=== PATIENT | male | born 1980 | race Caucasian/White ===

== ENCOUNTER 2016-08-08 08:08 | Emergency (ER) | payer OTHER ==
[2016-08-08] MEDS ORDERED: IBUPROFEN 800 MG TABLET PO STA (08:18)
[2016-08-08] MEDS ORDERED: IBUPROFEN 800 MG TABLET PO ONE (08:20)
== END 2016-08-08 09:40 | disposition home or self-care (01) ==
DX: S93.601A Unspecified sprain of right foot, initial encounter (principal); W21.89XA Striking against or struck by other sports equipment, initial encounter; Y93.89 Activity, other specified; F17.200 Nicotine dependence, unspecified, uncomplicated
CPT/HCPCS: 73630; 99283; A9270

== ENCOUNTER 2017-03-25 17:37 | Emergency (ER) | payer OTHER ==
[2017-03-25 17:50] VITALS: BP 150/89
--- NOTE | 2017-03-25 17:55 | ED Physician Documentation ---
PD HPI MALE - Stated complaint Stated Complaint: ABDX PX - Chief complaint Chief Complaint: General - History obtained from History obtained from: Patient - History of Present Illness Timing - onset: Yesterday Timing - duration: Days (2) Timing - details: Gradual onset, Still present Associated symptoms: Dysuria (mild), Testiclar pain. No: Hematuria (but noted blood in his semen 2 days ago. No discharge.), Scrotal swelling PD HPI MALE CONTRIB FACTORS: Sexually active (with just his .) Similar symptoms before: Has not had sx before Recently seen: Not recently seen Review of Systems Constitutional: denies: Fever, Chills GI: denies: Abdominal Pain, Nausea, Vomiting, Diarrhea : reports: Dysuria (mild today), Other (blood scant amount in semen 2 days ago.). denies: Frequency, Hematuria, Discharge Skin: denies: Rash, Lesions Musculoskeletal: denies: Neck pain, Back pain PD PAST MEDICAL HISTORY - Past Medical History Endocrine/Autoimmune: None : None - Past Surgical History Past Surgical History: Yes Ortho: Other - Present Medications Home Medications: Ambulatory Orders Medication Instructions Recorded Confirmed Naproxen [Naprosyn] 500 mg PO BID #14 tablet 03/25/17 Sulfamethox/Trimeth 800/160 1 each PO BID #14 tablet 03/25/17 [Bactrim Ds 800/160] Tramadol HCl 50 mg PO Q6H PRN #20 tablet 03/25/17 - Allergies Allergies/Adverse Reactions: Allergies Allergy/AdvReac Type Severity Reaction Status Date / Time No Known Drug Allergies Allergy Verified 08/08/16 08:14 - Social History Does the pt smoke?: Yes Smoking Status: Current every day smoker Does the pt have substance abuse?: No - Immunizations Immunizations are current?: Yes PD ED PE NORMAL - Vitals Vital signs reviewed: Yes - General General: Alert and oriented X 3, No acute distress, Well developed/nourished - Male Male : Other (there is tenderness backside of both testicles with normal feeling testicle size. There is some fullnes of right epididymis. No masses. No hernia felt. There is good cremaster reflex on right, less on left. Slight off vertical lie on left. ) - Rectal Rectal: Deferred - Back Back: No CVA TTP - Derm Derm: Normal color, Warm and dry Results - Vitals Vitals: Oxygen O2 Source Room air - Labs Labs: Microbiology 03/25/17 18:19 Urine Culture - Preliminary Urine,Clean Catch No growth Laboratory Tests 03/25/17 18:19 Urine Color YELLOW Urine Clarity CLOUDY Urine pH 7.0 Ur Specific R[place] 1.020 Urine Protein TRACE Urine Glucose (UA) NEGATIVE Urine Ketones NEGATIVE Urine Occult Blood MODERATE H Urine Nitrite NEGATIVE Urine Bilirubin NEGATIVE Urine Urobilinogen 0.2 (NORMAL) Ur Leukocyte Esterase MODERATE H Urine RBC 6-10 H Urine WBC >25 H Ur Squamous Epith Cells NONE SEEN Urine Bacteria Few Ur Microscopic Review INDICATED Urine Culture Comments INDICATED - Rads (name of study) testicle U/S Radiology: Prelim report reviewed (normal) PD MEDICAL DECISION MAKING - ED course Complexity details: considered differential (testicles are normal by U/S and he does have blood and leuks in UA, with tenderness inferior to testicles c/w epididymal. Consider prostatitis but would not give scrotal tenderness. Unlikely STD.), d/w patient Departure - Departure Disposition: 01 Home, Self Care Clinical Impression: Testicle pain, Epididymitis Condition: Stable Record reviewed to determine appropriate education?: Yes Instructions: ED Epididymitis Follow-Up: [facility] [Provider Group] Prescriptions: Naproxen [Naprosyn] 500 mg PO BID #14 tablet Sulfamethox/Trimeth 800/160 [Bactrim Ds 800/160] 1 each PO BID #14 tablet Tramadol HCl 50 mg PO Q6H PRN #20 tablet PRN Reason: Pain Comments: The ultrasound shows normal structure of the testicles and normal blood flow in both. Your urine test does show signs of leukocytes which represent infection. Therefore assume there is some infection in through the lower part of the epididymis or potentially prostate. Use some anti-inflammatories such as ibuprofen or naproxen twice daily for the next week. Also Bactrim antibiotic twice daily for the next week. Add Tylenol or tramadol as needed for worse pain. Follow-up with your primary care if not improving over the next 2-3 days. Discharge Date/Time: 03/25/17 20:34
[2017-03-25] MEDS ORDERED: IBUPROFEN 600 MG TABLET PO ONE (18:22)
[2017-03-25] MEDS ORDERED: SULFAMETH/TRIMETH DS 800/160 MG TABLET PO ONE ×2 (18:22→20:32)
[2017-03-25] MEDS: IBUPROFEN 600 MG TABLET PO STA (18:23)
[2017-03-25 18:40] LABS: BILIRUBIN,URINE NEGATIVE (NEGATIVE)
[2017-03-25 18:41] LABS: UA w/ MICROSCOPIC CHARGE YES
[2017-03-25 18:48] LABS: UR CULTURE IF IND INDICATED; WBC,URINE >25 /HPF (0-3)
--- NOTE | 2017-03-25 20:24 | Ultrasound Preliminary Report ---
Exam: US Testicle w/Doppler Limited IMPRESSION: Negative testicular ultrasound. The testes demonstrate no evidence of mass or torsion. [facility] SITE ID: [id number]
--- NOTE | 2017-03-25 20:26 | Ultrasound Report ---
EXAM: SCROTAL ULTRASOUND EXAM DATE: 03/25/2017 07:16 PM. CLINICAL HISTORY: Testicle pain and tenderness, no noted injury. COMPARISON: None. TECHNIQUE: Real-time scanning was performed with static images obtained. Both color-flow and Doppler spectral analysis were utilized. FINDINGS: Right: Testis: 4.5 x 2.4 x 2.9 cm. Normal size and echotexture. No mass, calcification, or abnormal blood fl ow. Epididymis: Normal size and echotexture. No mass or abnormal blood flow. Hydrocele: Small. Varicocele: None. Left: Testis: 4.9 x 2.2 x 2.6 cm. Normal size and echotexture. No mass, calcification, or abnormal blood fl ow. Epididymis: Normal size and echotexture. No mass or abnormal blood flow. Hydrocele: Small Varicocele: None. IMPRESSION: Negative testicular ultrasound. The testes demonstrate no evidence of mass or torsion. [facility] Referring Provider Line: [phone] SITE ID: [id number]
[2017-03-25] MEDS: SULFAMETH/TRIMETH DS 800/160 MG TABLET PO STA (20:30)
== END 2017-03-25 20:34 | disposition home or self-care (01) ==
LOC: ED 17:37
DX: N50.819 Testicular pain, unspecified (principal); N45.1 Epididymitis; F17.200 Nicotine dependence, unspecified, uncomplicated
CPT/HCPCS: 76870; 81001; 81003; 87086; 93976; 99283; 99284

== ENCOUNTER 2017-04-07 09:11 | Emergency (ER) | payer OTHER ==
[2017-04-07 09:36] LABS: BILIRUBIN,URINE NEGATIVE (NEGATIVE)
[2017-04-07 10:00] LABS: UA w/ MICROSCOPIC CHARGE YES
[2017-04-07 10:07] LABS: UR CULTURE IF IND NOT INDICATED; WBC,URINE 0-3 /HPF (0-3)
--- NOTE | 2017-04-07 11:37 | ED Physician Documentation ---
History of Present Illness - Stated complaint Stated Complaint: MED REFILL - Chief complaint Chief Complaint: General - Additonal information Additional information: hx from pt 36 male AD [place] seen about 10 days ago for lower abd pain and swollen R testicle had test sono (no mass no torsion) and UA and was dced with bactrim X 7 day better on bactrim, swelling subsided etc now that ab is done sx have returned so he would like more antibiotics Review of Systems Constitutional: denies: Fever, Chills Throat: denies: Sore throat Cardiac: denies: Chest pain / pressure Respiratory: denies: Dyspnea GI: reports: Abdominal Pain : reports: Testicular pain PD PAST MEDICAL HISTORY - Past Medical History Past Medical History: No Endocrine/Autoimmune: None : None - Past Surgical History Past Surgical History: Yes Ortho: Other - Present Medications Home Medications: Ambulatory Orders Medication Instructions Recorded Confirmed Sulfamethox/Trimeth 800/160 1 each PO BID #20 tablet 04/07/17 [Bactrim Ds 800/160] traMADol [Ultram] 50 mg PO Q6H PRN #15 tablet 04/07/17 - Allergies Allergies/Adverse Reactions: Allergies Allergy/AdvReac Type Severity Reaction Status Date / Time No Known Drug Allergies Allergy Verified 04/07/17 09:27 - Social History Does the pt smoke?: Yes Smoking Status: Current every day smoker Does the pt have substance abuse?: No - Immunizations Immunizations are current?: Yes PD ED PE NORMAL - Vitals Vital signs reviewed: Yes - Cardiac Cardiac: RRR - Respiratory Respiratory: No respiratory distress, Clear bilaterally - Abdomen Abdomen: Soft, Non tender - Male Male : Other (no dc or lesions, testes descended, large R irreg testicular swelling with mod TTP, + cremesteric, no hernia) - Derm Derm: Normal color - Neuro Neuro: Alert and oriented X 3 Results - Vitals Vitals: Vital Signs - 24 hr 04/07/17 09:22 Temperature 36.5 C Heart Rate 86 Respiratory 18 Rate Blood Pressure 124/77 O2 Saturation 100 Oxygen O2 Source Room air - Labs Labs: Laboratory Tests 04/07/17 09:29 Urine Color DARK YELLOW Urine Clarity CLEAR Urine pH 6.0 Ur Specific [place] 1.020 Urine Protein TRACE Urine Glucose (UA) NEGATIVE Urine Ketones TRACE Urine Occult Blood SMALL H Urine Nitrite NEGATIVE Urine Bilirubin NEGATIVE Urine Urobilinogen 0.2 (NORMAL) Ur Leukocyte Esterase NEGATIVE Urine RBC 0-5 Urine WBC 0-3 Ur Squamous Epith Cells NONE SEEN Urine Bacteria None Seen Urine Mucus Few Strands Ur Microscopic Review INDICATED Urine Culture Comments NOT INDICATED PD MEDICAL DECISION MAKING - ED course ED course: pt states the swelling is the same, perhaps less, than when he was seen before and had a sono neg for mass and torsion, also pain is 5-7/10 and has been present for 2 weeks so doubt torsion Departure - Departure Disposition: 01 Home, Self Care Clinical Impression: Testicle pain, Epididymitis Condition: Good Instructions: ED Epididymitis Follow-Up: [facility] [Provider Group] Prescriptions: Sulfamethox/Trimeth 800/160 [Bactrim Ds 800/160] 1 each PO BID #20 tablet traMADol [Ultram] 50 mg PO Q6H PRN #15 tablet PRN Reason: Severe Pain Comments: The previous ultrasound for the same symptoms did not show a testicular mass or any torsion. Since you got better with the antibiotic before i have prescribed them again But if the swelling persists or returns again, I really think you need to see a specialist - you can call the urology clinic number I provided or ask your PMD at [facility] for a referral through [facility] Even if you feel better you need to follow up with your PMD at [place] within a week for a recheck You should take a probiotic while on the bactrim to prevent GI upset You can take tylenol and ibuprofen for midl to moderate pain Only take the tramadol for severe pain Forms: Activity restrictions
[2017-04-07] MEDS ORDERED: SULFAMETH/TRIMETH DS 800/160 MG TABLET PO STA (11:40)
[2017-04-07] MEDS ORDERED: SULFAMETH/TRIMETH DS 800/160 MG TABLET PO ONE (11:50)
[2017-04-07 11:59] VITALS: BP 132/74
== END 2017-04-07 11:59 | disposition home or self-care (01) ==
LOC: ED 09:11
DX: N50.811 Right testicular pain (principal); N45.1 Epididymitis; F17.200 Nicotine dependence, unspecified, uncomplicated
CPT/HCPCS: 81001; 87491; 87591; 99283; A9270; 81003; 87086

== ENCOUNTER 2020-05-31 07:51 | Outpatient (CLI) | payer BC, OTHER ==
--- NOTE | 2020-05-31 16:12 | XRAY Report ---
PROCEDURE: Forearm LT INDICATIONS: LIPOMA TECHNIQUE: 2 views of the forearm were acquired. COMPARISON: None FINDINGS: Bones: No fractures or dislocations. No suspicious bony lesions. Soft tissues: No suspicious soft tissue calcifications or masses. IMPRESSION: No definitively identified soft tissue mass. If this remains of concern, focused ultrasound is recomm ended. Reviewed by: Toyin Finnegan MD on 05/31/2020 4:11 PM PST Approved by: Toyin Finnegan MD on 05/31/2020 4:11 PM PST Station ID: [id number]
== END 2020-05-31 23:59 | disposition home or self-care (01) ==
LOC: DI.N 07:51
PROVIDERS: ATTEND Orthopaedic Surgery
DX: D17.9 Benign lipomatous neoplasm, unspecified (principal)

== ENCOUNTER 2022-02-17 08:00 | Outpatient (CLI) | payer BC, OTHER ==
--- NOTE | 2022-02-17 11:50 | XRAY Report ---
PROCEDURE: Knee 3 View RT INDICATIONS: ACUTE RIGHT KNEE PAIN TECHNIQUE: 3 views of the right knee(s) were acquired. COMPARISON: None. FINDINGS: Bones: No fractures or dislocations. No suspicious bony lesions. Soft tissues: Suprapatellar joint effusion. No suspicious soft tissue calcifications. IMPRESSION: No acute osseous abnormality. Joint effusion is present. Reviewed by: Juan Busch MD on 02/17/2022 11:49 AM PDT Approved by: Juan Busch MD on 02/17/2022 11:49 AM PDT Station ID: [id number]
== END 2022-02-17 23:59 | disposition home or self-care (01) ==
LOC: DI.S 08:00
PROVIDERS: ATTEND Physician Assistant Medical
DX: M25.561 Pain in right knee (principal); M25.461 Effusion, right knee
CPT/HCPCS: 87070; 87205

== ENCOUNTER 2023-02-08 15:24 | Emergency (ER) | payer BC ==
[2023-02-08] MEDS ORDERED: lidocaine 1% 20 ML MDV SUBQ ONE (15:31)
[2023-02-08 15:34] VITALS: BP 140/90; O2SAT 98
[2023-02-08] MEDS ORDERED: TETANUS/DIPHTHERIA/PERTUSSIS 0.5 ML SYRINGE IM ONE (15:44)
--- NOTE | 2023-02-08 15:46 | ED Physician Documentation ---
PD HPI UPPER EXT INJURY - Stated complaint Stated Complaint: L HAND LAC - Chief complaint Chief Complaint: Laceration - History obtained from History obtained from: Patient - History of Present Illness Location: Left, Hand Type of injury: Laceration - Additonal information Additional information: Patient is a 42-year-old male presenting for evaluation of a laceration to his left hand that occurred just prior to arrival as he was working on a fishing tye with a pocket knife. He is unsure of his last tetanus. Bleeding is controlled with pressure. He does not take a blood thinner. Review of Systems Constitutional: denies: Fever Cardiac: denies: Chest pain / pressure Respiratory: denies: Dyspnea GI: denies: Abdominal Pain Skin: reports: Laceration (s) PD PAST MEDICAL HISTORY - Past Medical History Endocrine/Autoimmune: None : None - Past Surgical History Past Surgical History: Yes Ortho: Other - Present Medications Home Medications: Ambulatory Orders Medication Instructions Recorded Confirmed Sulfamethox/Trimeth 800/160 1 each PO BID #20 tablet 04/07/17 [Bactrim Ds 800/160] traMADol [Ultram] 50 mg PO Q6H PRN #15 tablet 04/07/17 - Allergies Allergies/Adverse Reactions: Allergies Allergy/AdvReac Type Severity Reaction Status Date / Time No Known Drug Allergies Allergy Verified 02/08/23 15:26 - Social History Does the pt smoke?: Yes Smoking Status: Current every day smoker Does the pt have substance abuse?: No - Immunizations Immunizations are current?: Yes PD ED PE NORMAL - General General: Alert and oriented X 3, No acute distress, Well developed/nourished - HEENT HEENT: Atraumatic - Neck Neck: Supple, no meningeal sign - Cardiac Cardiac: Strong equal pulses - Respiratory Respiratory: No respiratory distress - Extremities Extremities: Other (2 and half centimeter laceration to Thenar eminence, normal range of motion of left thumb) PD ED PE EXPANDED - Extremities HEIDY UE/Hands Visual: 1 - laceration Results - Vitals Vitals: Vital Signs - 24 hr 02/08/23 15:26 Temperature 36.5 C Heart Rate 88 Respiratory 16 Rate Blood Pressure 140/90 H O2 Saturation 98 Oxygen O2 Source Room air Procedures - Laceration (location) L hand Length in cm: 2 Wound type: Linear Neurovascular status: Sensory intact, Motor intact, Vascular intact Tendon involvement: Tendon intact Anesthesia: Lidocaine 1% Wound preparation: Hibiclens, Irrigated copiously NS Skin layer closure: Size #-0 - enter number (4-0), Sutures - enter # (6) Other: Patient tolerated well, No complications, Neurovascular intact, Dressing applied, Tetanus booster given PD Medical Decision Making - ED course ED course: Patient is a 42-year-old male presenting for evaluation of left hand laceration. Tetanus booster was given. Wound was thoroughly cleaned and irrigated and sutured. No signs of neurovascular injury or tendon injury. Patient counseled regarding wound care instructions, need to return for suture removal as well as concerning symptoms to return for. Departure - Departure Disposition: 01 Home, Self Care Clinical Impression: Laceration of left hand Condition: Stable Instructions: ED Laceration Hand Comments: You have a laceration that was repaired to your left hand with 6 sutures. Please keep this wound clean and dry. Please try and limit movements with this hand in order to prevent splitting the wound back open. Return to the emergency department or walk-in clinic for suture removal in 10 days. Return to ER with any worsening symptoms such as pain, abnormal drainage, swelling or redness. You are given a tetanus booster today. Forms: PCP List Discharge Date/Time: 02/08/23 16:31
== END 2023-02-08 16:31 | disposition home or self-care (01) ==
LOC: ED 15:24
DX: S61.412A Laceration without foreign body of left hand, initial encounter (principal); W45.8XXA Other foreign body or object entering through skin, initial encounter; Z23 Encounter for immunization; F17.200 Nicotine dependence, unspecified, uncomplicated
CPT/HCPCS: 12001; 99283